=== PATIENT | male | born 1940 | race Two or more races ===

== ENCOUNTER 2023-11-30 21:48 | Emergency (ER) | payer OTHER ==
[~2023-11-30] VITALS: Ht 170.2 cm; Wt 100.0 kg
[2023-11-30 23:22] VITALS: PULSE 66; RESP 17; O2SAT 96
[2023-12-01] MEDS ORDERED: PIPERACILLIN-TAZOB 3.375GM 100 ML IV ONE
[2023-12-01] MEDS ORDERED: SODIUM CHLORIDE 0.9% 1,000 ML IV ONE
[2023-12-01 00:51] LABS: Basophils # (auto) 0 10 ^3/uL (0-0.2); Eosinophils # (auto) 0.1 10 ^3/uL (0-0.8); Mean Corpuscular Hgb Conc. 34.1 g/dL (32.0-36.0); Neutrophils % (auto) 73.2 % (37.0-80.0); White Blood Cell 6.8 10^3/uL (4.4-10.8)
[2023-12-01 00:55] LABS: Basophils % (auto) 0.5 % (0.0-2.0); Hemoglobin 12.9 g/dL (13.5-17.5); Lymphocytes % (auto) 14.5 % (10.0-50.0); Mean Corpuscular Hemoglobin 34.2 pg (28.0-32.0); Mean Corpuscular Volume 100.4 fL (80.0-100.0); Monocytes # (auto) 0.7 10 ^3/uL (0-1.3); Monocytes % (auto) 10.8 % (0.0-12.0); Red Blood Cells 3.78 10^6/uL (4.5-5.90); Red Cell Distribution Width 13.6 % (11.8-14.3)
[2023-12-01 01:01] LABS: Alanine Aminotransferase 15 U/L (7-40); Albumin 3.5 g/dL (3.2-4.8); Alkaline Phosphatase 101 U/L (46-116); Anion Gap 7 (5-15); Aspartate Aminotransferase 18 U/L (13-40); BUN/Creatinine Ratio 11.1 (10.0-20.0); Bilirubin, Total 0.5 mg/dL (0.2-1.0); Blood Urea Nitrogen 16 mg/dL (9-23); Calcium 8.7 mg/dL (8.7-10.4); Carbon Dioxide 26 mmol/L (20-30); Chloride 110 mmol/L (98-107); Glucose 198 mg/dL (74-106); Potassium 3.5 mmol/L (3.5-5.1); Sodium 143 mmol/L (136-145); Total Protein 6.1 g/dL (5.7-8.2)
[2023-12-01] MEDS ORDERED: ENOXAPARIN SOD 100 MG/1 ML SYRINGE SC ONE (01:15)
[2023-12-01 01:17] LABS: Urine Epithelial Cast None Seen /hpf (<5)
[2023-12-01 01:39] LABS: Urine Bacteria NONE SEEN /hpf (None Seen); Urine Blood TRACE /uL (Negative); Urine Clarity Clear (Clear); Urine Color Yellow (Yellow); Urine Hyaline Cast FEW /lpf (0 - 2); Urine Protein, UAD 2+ (Negative); Urine Specific Gravity 1.017 (1.001-1.035); Urine Urobilinogen Normal (Negative); Urine WBC 3 /hpf (0 - 3)
[2023-12-01 04:00] VITALS: TEMP 98.6
[2023-12-01 05:37] LABS: INR 1.06 (0.9-1.15); Partial Thromboplastin Time 30.8 SEC (24.5-34.5); Prothrombin Time 11.1 sec (9.3-11.8)
[2023-12-01] MEDS ORDERED: hydrALAZINE HCL 20 MG/ML VL IV PRN (06:45)
[2023-12-01] MEDS ORDERED: ONDANSETRON HCL 4 MG/2 ML VIAL IV PRN (06:45)
[2023-12-01 07:45] VITALS: PULSE 71; RESP 16; O2SAT 96
[2023-12-01 11:59] LABS: Folate (Folic Acid) 18.63 ng/mL (>5.38)
[2023-12-01 14:27] VITALS: BP 181/60; PULSE 75; RESP 14; O2SAT 99
[2023-12-01] MEDS ORDERED: DOXY-286 PO (14:41)
== END 2023-12-01 16:10 | disposition home or self-care (01) ==
LOC: EDBD 21:48 → ER 21:48
DX: I24.89 Other forms of acute ischemic heart disease (principal); I11.0 Hypertensive heart disease with heart failure; I50.9 Heart failure, unspecified; L03.115 Cellulitis of right lower limb; L03.116 Cellulitis of left lower limb; E11.9 Type 2 diabetes mellitus without complications; I48.91 Unspecified atrial fibrillation; M19.90 Unspecified osteoarthritis, unspecified site; R51.9 Headache, unspecified; Z86.73 Personal history of transient ischemic attack (TIA), and cerebral infarction without residual deficits
CPT/HCPCS: 36415; 51701; 70450; 71045; 73562; 74176; 80053; 81001; 82607; 82746; 83605; 83880; 84484; 85025; 85610; 85730; 87040; 96365; 96366; 96372; 99285; J1650; J2543; 93005